=== PATIENT | female | born 1955 | race Caucasian/White ===

== ENCOUNTER → 2016-09-22 | Outpatient (CLI) | payer BC ==
[~2016-09-22] VITALS: Ht 158.8 cm; Wt 61.7 kg
[~2016-09-22] MED LIST: BENTYL20 MG PO; COQ1050 MG PO; COZAAR100 MG PO; FIORICET 50-301 EACH PO; FLONASE ALLERG9.9 ML BOTH NARES; IMITREX100 MG PO; MELOXICAM15 MG PO; MULTIPLE VITAM1 EACH PO; NORVASC5 MG PO; PANTOPRAZOLE SO40 MG PO; PHENERGAN25 MG PR; PROZAC10 MG PO; TEMOVATE 0.05%30 GM TP; VITAMIN D31000 UNIT PO; XANAX0.5 MG PO; ZOCOR20 MG PO
== END | disposition home or self-care (01) ==
LOC: AMB 09:52
PROC: 0DBH8ZX Excision of Cecum, Via Natural or Artificial Opening Endoscopic, Diagnostic (ICD-10-PCS; principal; 2016-09-22)
DX: R19.5 Other fecal abnormalities (principal); D12.0 Benign neoplasm of cecum; K64.8 Other hemorrhoids; I10 Essential (primary) hypertension
CPT/HCPCS: 88305; 93005